=== PATIENT | female | born 1995 | race Caucasian/White ===

== ENCOUNTER 2019-11-13 11:50 | Inpatient (IN) | payer MEDICAID ==
[~2019-11-13] VITALS: Ht 165.1 cm; Wt 77.4 kg
[2019-11-13] MEDS ORDERED: [UNRECOGNIZED DRUG - REMARK] PO (12:15)
[2019-11-13 13:13] LABS: BASOPHILS % (AUTO) 0.4 % (0.0-2.0); EOSINOPHILS % (AUTO) 0.3 % (1.0-6.0); HEMATOCRIT 43.6 % (36-46); HEMOGLOBIN 14.7 g/dL (12.0-16.0); LYMPHOCYTES # (AUTO) 1.3 K/uL (1.0-4.8); LYMPHOCYTES % (AUTO) 15.5 % (22.0-44.0); MEAN CORPUSCULAR HGB CONC 33.7 G/dL (31.0-37.0); MEAN CORPUSCULAR VOLUME 86 fL (80-100); MONOCYTES # (AUTO) 0.6 K/uL (0.1-1.0); MONOCYTES % (AUTO) 6.9 % (2.0-9.0); NEUTROPHILS # (AUTO) 6.6 K/uL (1.8-7.7); NEUTROPHILS % (AUTO) 76.9 % (40.0-70.0); PLATELET COUNT (AUTO) 256 K/uL (150-450); RED BLOOD CELL COUNT(AUTO) 5.07 MIL/uL (4.00-5.20); RED CELL DISTRIBUTION WIDTH 14.2 % (11.5-14.5)
[2019-11-13 13:26] LABS: ANION GAP 11 mmol/L (8-16); CARBON DIOXIDE 24 mmol/L (22-29); CHLORIDE 103 mmol/L (98-107); CREATININE 0.68 mg/dL (0.60-1.30); GLOMERULAR FILTR. RATE CALC > 60 mL/min (>60); GLUCOSE,RANDOM 101 mg/dL (70-110); POTASSIUM 3.8 mmol/L (3.5-5.1); SODIUM SERUM 138 mmol/L (136-145); UREA NITROGEN, BLOOD 9 mg/dL (7-18)
[2019-11-13 13:32] LABS: ALANINE AMINOTRANSFERASE 24 U/L (12-78); ALBUMIN 4.9 g/dL (3.4-5.0); ALKALINE PHOSPHATASE 81 U/L (46-116); ASPARTATE AMINOTRANSFERASE 14 U/L (15-37); BILIRUBIN,TOTAL 0.6 mg/dL (0.1-1.0); TOTAL PROTEIN, SERUM 8.1 g/dL (6.4-8.2)
[2019-11-13 13:34] LABS: CALCIUM, TOTAL 9.1 mg/dL (8.8-10.5)
[2019-11-13 14:44] LABS: AMPHET/METH SCREEN,URINE NEGATIVE (NEGATIVE); BARBITURATE SCREEN, URINE NEGATIVE (NEGATIVE); BENZODIAZEPINES SCREEN,URINE NEGATIVE (NEGATIVE); CANNABINOID SCREEN,URINE POSITIVE (NEGATIVE); COCAINE SCREEN,URINE NEGATIVE (NEGATIVE); METHADONE SCREEN, URINE NEGATIVE (NEGATIVE); OPIATE SCREEN,URINE NEGATIVE (NEGATIVE)
[2019-11-13 14:45] LABS: APPEARANCE,URINE CLOUDY (CLEAR); GLUCOSE, URINE (UA) NEGATIVE (NEGATIVE); KETONES,URINE >=80 mg/dL (NEGATIVE); LEUKOCYTE ESTERASE ,URINE SMALL (NEGATIVE); NITRATE,URINE NEGATIVE (NEGATIVE); OCCULT BLOOD,URINE NEGATIVE (NEGATIVE); PH,URINE 5.5 (5.0-8.0); PROTEIN,URINE POS 1+ (NEGATIVE); UROBILINOGEN,URINE 0.2 mg/dL (<=1.0)
[2019-11-13 14:46] LABS: BILIRUBIN,URINE PRELIM. POSITIVE (NEGATIVE)
[2019-11-13 14:49] LABS: BACTERIA,URINE Moderate /HPF (None Seen); RBC,URINE None Seen /HPF (0-2); SQUAMOUS EPITHELIAL CELL,UR Many /LPF (None Seen)
[2019-11-13 14:50] LABS: PHENCYCLIDINE SCREEN,URINE NEGATIVE (NEGATIVE)
[2019-11-13] MEDS ORDERED: LORazepam 1 MG TABLET PO ONE (15:30)
[2019-11-13 15:41] LABS: HCG,QUANTITATIVE < 1 mIU/mL (0-6)
[2019-11-13] MEDS ORDERED: HALOPERIDOL 5 MG TABLET PO PRN (16:45)
[2019-11-13] MEDS ORDERED: LORazepam 2 MG TABLET PO PRN (16:45)
[2019-11-13] MEDS ORDERED: ZOLPIDEM TARTRATE 10 MG TABLET PO PRN (16:45)
[2019-11-13 19:27] VITALS: BP 149/90
[2019-11-14 08:07] LABS: CHOL/HDL RATIO 2.6 (3.9-5.7)
[2019-11-14 09:30] VITALS: BP 123/88
[2019-11-14] MEDS ORDERED: LOPERAMIDE HCL 2 MG CAPSULE PO PRN (11:45)
[2019-11-14] MEDS ORDERED: IBUPROFEN 400 MG TABLET PO PRN (11:45)
[2019-11-14] MEDS ORDERED: DOCUSATE SODIUM 100 MG CAPSULE PO PRN (11:45)
[2019-11-14] MEDS ORDERED: MAGNESIUM HYDROXIDE SUSPENSION 30 ML UDCUP PO PRN (11:45)
[2019-11-14] MEDS ORDERED: ONDANSETRON HCL 4 MG TABLET PO PRN (11:45)
[2019-11-14] MEDS ORDERED: NICOTINE 14 MG/24 HOUR PATCH TD PRN (11:45)
[2019-11-14] MEDS ORDERED: ACETAMINOPHEN 325 MG TABLET PO PRN (11:45)
[2019-11-14] MEDS ORDERED: MAG HYDROX/AL HYDROX/SIMETH ES 30 ML SUSPENSION UDCUP PO PRN (11:45)
[2019-11-14] MEDS ORDERED: GuaiFENesin/D-METHORPHAN [SUGAR-FREE] 200-20MG/10 ML SYRUP UDCUP PO PRN (11:45)
[2019-11-14] MEDS ORDERED: CloNIDine HCL 0.1 MG TABLET PO PRN (11:45)
[2019-11-14] MEDS ORDERED: PETROLATUM,WHITE 28 GM JELLY TP PRN (11:45)
[2019-11-14] MEDS ORDERED: ALBUTEROL SULFATE HFA 90 MCG/PUFF 8 GM INHALER IH PRN (11:45)
[2019-11-14 19:53] VITALS: BP 138/76
[2019-11-14] MEDS: QUEtiapine FUMARATE 200 MG TABLET PO SCH (20:04)
[2019-11-14] MEDS: DIVALPROEX SODIUM 500 MG DR TABLET PO SCH (20:04)
[2019-11-15 09:16] VITALS: BP 133/78
[2019-11-15] MEDS: DIVALPROEX SODIUM 500 MG DR TABLET PO SCH ×2 (09:21→20:49)
[2019-11-15 14:08] VITALS: BP 116/68
[2019-11-15 17:19] VITALS: BP 120/64
[2019-11-15] MEDS: QUEtiapine FUMARATE 200 MG TABLET PO SCH (20:49)
[2019-11-16 09:05] VITALS: BP 132/77
[2019-11-16] MEDS: DIVALPROEX SODIUM 500 MG DR TABLET PO SCH ×2 (09:05→20:26)
[2019-11-16 19:20] VITALS: BP 117/80
[2019-11-16] MEDS: QUEtiapine FUMARATE 200 MG TABLET PO SCH (20:26)
[2019-11-17 09:30] VITALS: BP 120/65
[2019-11-17] MEDS: DIVALPROEX SODIUM 500 MG DR TABLET PO SCH ×2 (09:49→20:39)
[2019-11-17 16:53] VITALS: BP 110/68
[2019-11-17] MEDS: QUEtiapine FUMARATE 200 MG TABLET PO SCH (20:39)
[2019-11-18] MEDS: DIVALPROEX SODIUM 500 MG DR TABLET PO SCH ×2 (08:00→20:07)
[2019-11-18 09:17] VITALS: BP 116/91
[2019-11-18 16:00] VITALS: BP 116/74
[2019-11-18] MEDS: QUEtiapine FUMARATE 200 MG TABLET PO SCH (20:07)
[2019-11-19] MEDS: DIVALPROEX SODIUM 500 MG DR TABLET PO SCH ×2 (08:24→20:35)
[2019-11-19 08:25] VITALS: BP 118/74
[2019-11-19 16:00] VITALS: BP 117/74
[2019-11-19] MEDS: QUEtiapine FUMARATE 200 MG TABLET PO SCH (20:35)
[2019-11-20] MEDS: DIVALPROEX SODIUM 500 MG DR TABLET PO SCH ×2 (08:29→20:11)
[2019-11-20 09:22] VITALS: BP 118/68
[2019-11-20 16:16] VITALS: BP 132/73
[2019-11-20] MEDS: QUEtiapine FUMARATE 200 MG TABLET PO SCH (20:12)
[2019-11-21] MEDS: DIVALPROEX SODIUM 500 MG DR TABLET PO SCH (08:48)
[2019-11-21 08:53] VITALS: BP 116/82
[2019-11-21] MEDS ORDERED: QUET200T29 PO (14:06)
[2019-11-21] MEDS ORDERED: DIVA-78 PO (14:06)
== END 2019-11-21 17:00 | disposition home or self-care (01) | DRG 885 ==
LOC: EMS 11:55 → 3EI 17:59
PROVIDERS: ADMIT Psychiatry & Neurology Child & Adolescent Psychiatry; ATTEND Psychiatry & Neurology Child & Adolescent Psychiatry
DX: F31.2 Bipolar disorder, current episode manic severe with psychotic features (principal); F10.10 Alcohol abuse, uncomplicated; F12.10 Cannabis abuse, uncomplicated; G44.209 Tension-type headache, unspecified, not intractable; F41.9 Anxiety disorder, unspecified; F90.9 Attention-deficit hyperactivity disorder, unspecified type; R00.0 Tachycardia, unspecified; Z79.899 Other long term (current) drug therapy; Z91.5 Personal history of self-harm
CPT/HCPCS: 87086; G0480

== ENCOUNTER 2019-11-26 15:32 | Emergency (ER) | payer MEDICAID ==
[~2019-11-26] VITALS: Ht 162.6 cm; Wt 77.3 kg
[~2019-11-26 15:32] MED LIST: DIVA-78 PO; QUET200T29 PO
[2019-11-26 15:38] VITALS: BP 129/77
[2019-11-26] MEDS ORDERED: HYD25 PO (15:47)
[2019-11-26] MEDS ORDERED: RISP1 PO (15:47)
[2019-11-26] MEDS ORDERED: ACETAMINOPHEN 500 MG TABLET PO ONE (16:45)
== END 2019-11-26 17:39 | disposition home or self-care (01) ==
LOC: EMS 15:32
DX: N64.4 Mastodynia (principal); F41.9 Anxiety disorder, unspecified; F32.9 Major depressive disorder, single episode, unspecified

== ENCOUNTER → 2019-12-13 | Emergency (ER) | payer MEDICAID ==
[~2019-12-13] VITALS: Ht 162.6 cm; Wt 86.4 kg
[~2019-12-13] MED LIST changes: -DIVA-78 PO; +FLUTICASONE PROPIONATE 50 MCG/SPRAY 16 GM NASAL SPRAY NASAL ONE; +HYD25 PO; +HydrOXYzine HCL 50 MG TABLET PO ONE; -QUET200T29 PO; +RISP1TAB27 PO
[2019-12-13 14:29] LABS: BASOPHILS % (AUTO) 1.3 % (0.0-2.0); EOSINOPHILS % (AUTO) 5.4 % (1.0-6.0); HEMATOCRIT 37.8 % (36-46); HEMOGLOBIN 12.8 g/dL (12.0-16.0); LYMPHOCYTES # (AUTO) 2.2 K/uL (1.0-4.8); LYMPHOCYTES % (AUTO) 30.8 % (22.0-44.0); MEAN CORPUSCULAR HEMOGLOBIN 29.3 pg (26.0-34.0); MEAN CORPUSCULAR HGB CONC 33.9 G/dL (31.0-37.0); MEAN CORPUSCULAR VOLUME 87 fL (80-100); MONOCYTES # (AUTO) 0.5 K/uL (0.1-1.0); MONOCYTES % (AUTO) 7.6 % (2.0-9.0); NEUTROPHILS # (AUTO) 3.9 K/uL (1.8-7.7); NEUTROPHILS % (AUTO) 54.9 % (40.0-70.0); PLATELET COUNT (AUTO) 246 K/uL (150-450); RED BLOOD CELL COUNT(AUTO) 4.36 MIL/uL (4.00-5.20)
[2019-12-13 14:47] LABS: CARBON DIOXIDE 29 mmol/L (22-29); CHLORIDE 104 mmol/L (98-107); POTASSIUM 3.9 mmol/L (3.5-5.1); SODIUM SERUM 140 mmol/L (136-145)
[2019-12-13 14:48] LABS: ANION GAP 7 mmol/L (8-16); CALCIUM, TOTAL 8.7 mg/dL (8.8-10.5); CREATININE 0.54 mg/dL (0.60-1.30); GLOMERULAR FILTR. RATE CALC > 60 mL/min (>60); GLUCOSE,RANDOM 89 mg/dL (70-110); UREA NITROGEN, BLOOD 17 mg/dL (7-18)
[2019-12-13 14:53] LABS: AMPHET/METH SCREEN,URINE NEGATIVE (NEGATIVE); BARBITURATE SCREEN, URINE NEGATIVE (NEGATIVE); BENZODIAZEPINES SCREEN,URINE NEGATIVE (NEGATIVE); CANNABINOID SCREEN,URINE NEGATIVE (NEGATIVE); COCAINE SCREEN,URINE NEGATIVE (NEGATIVE); METHADONE SCREEN, URINE NEGATIVE (NEGATIVE); OPIATE SCREEN,URINE NEGATIVE (NEGATIVE)
[2019-12-13 14:54] LABS: PHENCYCLIDINE SCREEN,URINE NEGATIVE (NEGATIVE)
[2019-12-13 14:55] LABS: ALANINE AMINOTRANSFERASE 29 U/L (12-78); ALKALINE PHOSPHATASE 75 U/L (46-116); ASPARTATE AMINOTRANSFERASE 13 U/L (15-37); BILIRUBIN,TOTAL 0.3 mg/dL (0.1-1.0); TOTAL PROTEIN, SERUM 7.6 g/dL (6.4-8.2)
[2019-12-13 16:19] VITALS: BP 112/74
== END | disposition home or self-care (01) ==
LOC: EMS 13:48
DX: F41.9 Anxiety disorder, unspecified (principal); R09.81 Nasal congestion; R06.02 Shortness of breath; R07.89 Other chest pain; F32.9 Major depressive disorder, single episode, unspecified
CPT/HCPCS: 85379; 93005